=== PATIENT | male | born 1970 | race Caucasian/White ===

== ENCOUNTER → 2019-02-03 15:13 | Outpatient (CLI) | payer BC, SELFPAY ==
--- NOTE | 2019-02-03 15:36 | XR_ITS ---
PROCEDURE: XR FOOT LT MIN 3V CLINICAL INDICATION: LT FOOT PAIN,LT ANKLE PAIN COMPARISON: No exams were available for comparison FINDINGS: No fracture or dislocation. No lytic or blastic change. There is normal mineralization. There are osteoarthritic changes of the 1st metatarsophalangeal joint. Minimal bony hypertrophic changes are present along the dorsal aspect of the navicular Other findings:None. 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
--- NOTE | 2019-02-03 15:36 | XR_ITS ---
PROCEDURE: XR ANKLE LT MIN 3V CLINICAL INDICATION: LEFT FOOT PAIN,LT ANKLE PAIN Pain following injury COMPARISON: No exams were available for comparison FINDINGS: No fracture, dislocation, lytic change, or blastic change evident. No significant degenerative change IMPRESSION: No acute findings. Dictated by: Amadou Borjas MD 02/03/2019 16:31 <Electronically signed by Amadou Borjas MD in [facility]> 02/03/2019 16:31
== END ==
PROVIDERS: PCP Emergency Medicine; Visit Provider Emergency Medicine
DX: M25.572 Pain in left ankle and joints of left foot (principal); M79.672 Pain in left foot
CPT/HCPCS: 73610; 73630

== ENCOUNTER → 2019-03-29 10:33 | Outpatient (CLI) | payer BC, SELFPAY ==
--- NOTE | 2019-03-29 10:37 | XR_ITS ---
PROCEDURE: XR TIBIA FIBULA LT 2V CLINICAL INDICATION: LT LOWER EXTREMITY PAIN COMPARISON: No exams were available for comparison FINDINGS: No fracture, dislocation, lytic change, or blastic change evident. No significant degenerative change IMPRESSION: No acute findings. Dictated by: Amadou Borjas MD 03/29/2019 11:28 Electronically signed by Amadou Borjas MD in [facility] 03/29/2019 11:28
== END ==
PROVIDERS: PCP Family Medicine; Visit Provider Emergency Medicine
DX: M79.605 Pain in left leg (principal)
CPT/HCPCS: 73590

== ENCOUNTER → 2020-11-21 11:33 | Outpatient (CLI) | payer BC, SELFPAY ==
--- NOTE | 2020-11-21 11:36 | XR_ITS ---
PROCEDURE: XR CERVICAL SPINE 5V CLINICAL INDICATION: CERVICAL RADICULOPATHY COMPARISON: No exams were available for comparison FINDINGS: No acute fracture or dislocation. Minimal anterolisthesis C5 on C6 of 1-2 mm. Minimal degenerative disc disease C4-C5. No significant foraminal narrowing. No lytic or blastic change. No cervical rib IMPRESSION: Minimal degenerative change Dictated by: Amadou Borjas MD 11/21/2020 11:59 Amadou Borjas MD in [facility] 11/21/2020 11:59
== END ==
PROVIDERS: PCP Family Medicine; Visit Provider Family Medicine
DX: M54.12 Radiculopathy, cervical region (principal)
CPT/HCPCS: 72050

== ENCOUNTER → 2021-08-08 11:59 | Outpatient (CLI) | payer BC, SELFPAY ==
[2021-08-08 12:23] LABS: Basophils # 0.1 K/mm3 (0-0.2); Eosinophils # 0.1 K/mm3 (0.0-0.4); Eosinophils % 1.6 % (0.1-12.0); Hematocrit 53.2 % (42.0-52.0); Hemoglobin 17.9 g/dL (14.1-18.0); Lymphocytes # 2.2 K/mm3 (0.7-4.5); Lymphocytes % 30.3 % (10-50); Mean Corpuscular HGB Conc 33.7 g/dL (31.8-35.4); Mean Corpuscular Hemoglobin 34.1 pg (27.0-31.2); Mean Corpuscular Volume 101.3 fl (80-94); Mean Platelet Volume 8.2 fl (7.4-10.4); Monocytes # 0.5 K/mm3 (0.1-1.0); Monocytes % 6.4 % (1.7-9.3); Neutrophils # 4.3 K/mm3 (1.8-7.8); Neutrophils % 59.7 % (37.0-80.0); Platelet Count 259 K/mm3 (142-424); Red Blood Count 5.25 M/mm3 (4.60-6.20); Red Cell Distribution Width 12.8 % (11.5-17.5); White Blood Count 7.2 K/mm3 (4.8-10.8)
== END ==
PROVIDERS: PCP Family Medicine; Visit Provider Family Medicine
DX: Z20.822 Contact with and (suspected) exposure to COVID-19 (principal)
CPT/HCPCS: 36415; 85025; C9803; U0003; U0005